=== PATIENT | female | born 1985 | race Caucasian/White ===

== ENCOUNTER 2016-10-29 23:29 | Inpatient (IN) | payer OTHER ==
[~2016-10-29] VITALS: Ht 170.2 cm; Wt 84.4 kg
[2016-10-30] MEDS ORDERED: Lactated Ringer's 1,000 ML IV PRN (00:46)
[2016-10-30] MEDS ORDERED: Carboprost 250 mCg/mL Inj IM PRN ×2 (00:50→10:00)
[2016-10-30] MEDS ORDERED: Methylergonovine 0.2 mg/mL Inj IM PRN ×2 (00:50→10:00)
[2016-10-30] MEDS ORDERED: Hemorrhage Kit, Post Partum XX ONE ×2 (00:50→10:00)
[2016-10-30] MEDS ORDERED: Oxytocin 10 Unit/mL Inj IM PRN ×2 (00:50→10:00)
[2016-10-30] MEDS ORDERED: Sodium Chloride LOK Flush 10 mL Syringe IVFLUSH PRN (00:50)
[2016-10-30] MEDS ORDERED: Ondansetron 2 mg/mL 2 mL Inj IVPUSH PRN ×2 (00:50→03:35)
[2016-10-30] MEDS ORDERED: fentaNYL-PF 50 mCg/mL 2 mL Inj IVPUSH PRN (00:50)
[2016-10-30] MEDS ORDERED: Oxytocin 30 Units/500 mL LR 30 UNITS in IV Premix 1 EACH IV PRN ×2 (00:50→10:00)
[2016-10-30 00:59] LABS: Mean Corpuscular Hemoglobin 27.8 pg (27.0-35.0); Mean Corpuscular Volume 86.1 fL (81-100)
--- NOTE | 2016-10-30 02:13 | PCM.HPOB ---
Subjective Date of Service: Oct 30, 2016 Referring Provider: Admitting Physician: Nydia Hodge MD Primary Care Physician: Nopcp Attending Physician: Nydia Hodge MD Chief Complaint Active labor History of Present History of Present Illness 31-year-old at 39 weeks 4 days gestation presents [facility] the [facility] with contractions since 9 PM. Cervical exam shows 4 cm dilated with bulging membranes. OB History: (2), Para (1), Term (1), Living (1) Obstetrical Complications: None Past Medical History Obstetrical History: Prior at 37 weeks with 17 hours of labor Medical History: 1. Hypothyroidism 2. Systemic mastocytosis 3. Varicosities/phlebitis Hx Tobacco Use: No Hx Alcohol Use: No Past Family History Family History Noncontributory Living Arrangement: with Family Review of Systems Constitutional: Y: Chills, Fever Cardiovascular: Denies: Edema Respiratory: Denies: Cough Gastrointestinal: Reports: Abdominal Pain Hematologic: Denies: Abnormal bleeding Medications Home medications 1. gummy 2. Levothyroxine 88 g Allergy Coded Allergies: No Known Allergies (Unverified , 10/30/16) Exam Constitutional: Well-developed, Well-nourished HEENT: Atraumatic Lungs: Clear to Auscultation Heart: Regular Rate/Rhythm, Normal S2 Abdomen: Gravid Extremities: Edema (trace) Neurological/Psychiatric: Alert, Oriented X3 Neuro: Grossly Neurologically Intact Labs/Diagnostics Maternal Blood Type: A (+) Hx Rho(D) Immune Globulin: No Group B Strep Results: Negative Previous Infant with GBS: No Rubella: Immune Lab History: Negative for: Hx HIV OB Intrapartum Assessment/Plan Assessment 31-year-old at 39 weeks 4 days gestation with uncomplicated course in active labor Problems: (1) Active labor at term Plan: Continue normal peripartum care Status: Acute ICD Code: [id number] (2) Hypothyroidism Qualifiers: Hypothyroidism type: acquired Qualified Code: E03.9 - Hypothyroidism, unspecified Plan: Continue levothyroxine Status: Acute ICD Code: E03.9 Pain Management: Epidural and IV pain medication available Pain Evaluation: Adequate Pain Control Post plan: Continue routine post care Attending Statement The patient was seen and examined together with Dr. Marguerite Patel DO on 10/30/2016 and I agree with the history, exam and plan as outlined in the note above. MARGUERITE PATEL DO Oct 30, 2016 02:13 Nydia Hodge MD Oct 30, 2016 06:14
[2016-10-30] MEDS ORDERED: Lactated Ringer's 500 ML IV ONE (03:32)
[2016-10-30] MEDS ORDERED: Atropine 1 mg/10 mL (Code) Syringe IVPUSH PRN (03:35)
[2016-10-30] MEDS ORDERED: EPHEDrine Sulfate 50 mg/mL Inj IVPUSH PRN (03:35)
[2016-10-30] MEDS ORDERED: fentaNYL 2 mCg/mL-Bupiv 0.125% 100 ML EPIDURAL SCH (03:35)
--- NOTE | 2016-10-30 04:29 | PCM.HPANE ---
Patient Data Surgeon Admitting Provider:Nydia Hodge MD Attending Provider:Nydia Hodge MD Primary Care Physician:Yusuf Other Provider:Robin Aguiar Anesthesia Reason for Visit Term Labor TERM Ht/WT & BMI Body Mass Index Allergies Coded Allergies: No Known Allergies (Unverified , 10/30/16) History History of ENT Problems?: No Hx of Heart Problems?: No Hx of Respiratory Problem?: No Hx Neurologic Problems?: No Hx of GI Problems?: No Hx of Problems?: No Hx Musculoskeletal Problems?: No Hx of Psycho/Social Problems?: No Hx Surgeries?: No Hx Any Other Health Problems?: No Other History/Comment Systemic macrocytosis - Mild. Manifests as "blotchy skin" and ocassional wheezing while running. Negative work-up for liver involvement. No other systemic manifestations. Has had an epidural in the past for labor without complication, which worked well. Hx Alcohol Use: No Smoking Status: Never Smoker Stop/Bang Risk Assessment Category Category 1A: Patient has history of documented sleep apnea, and HAS NOT received any narcotic, sedative or anesthesia administration during this stay. Category 1B: Patient has history of documented sleep apnea, and HAS received any narcotic , sedative or anesthesia administration during this stay Category 2: Patient has SUSPECTED Obstructive Sleep Apnea, and HAS received any narcotic , sedative or anesthesia administration during this stay. Category 3: Patient has SUSPECTED Obstructive Sleep Apnea and HAS NOT received narcotic, sedative or anesthesia administration during this stay. Category 4: Outpatient in Procedural Areas with known sleep apnea or who screen positive for High Risk via the STOP/BANG questionnaire. Exam Exam General Appearance: Alert, Oriented X3 HEENT/AIRWAY: MP 2, Neck Movement (FROM) Lungs: Clear to Auscultation, Clear to Percussion Heart: Exam Unremarkable, Regular Rate/Rhythm Meds/Labs/Diagnostics Labs Test 10/30/16 00:30 White Blood Count 9.4th/mm3 (3.8-10.1) Red Blood Count 4.31mil/mm3 (3.90-5.20) Hemoglobin 12.0g/dL (12.0-15.6) Hematocrit 37.1% (35.0-46.0) Mean Corpuscular Volume 86.1fL (81-100) Mean Corpuscular Hemoglobin 27.8pg (27.0-35.0) Mean Corpuscular Hemoglobin Concent 32.3% (32.0-37.0) Red Cell Distribution Width 14.2% (12.3-15.4) Platelet Count 319bil/L (150-400) Hold Purple Top Tube Received (Received) Plan Impression Patient chart reviewed, patient interviewed and anesthestic plan with risks, benefits, and alternatives discussed, and informed consent obtained. ASA Physical Status: ASA2 Mod Systemic Disease Anesthetic Plan: Epidural Bene/Risks/Altern/Consents: Yes HP Complete Prior to Induction: Yes Olivier Shahid MD Oct 30, 2016 03:32
--- NOTE | 2016-10-30 06:21 | PCM.PNOBIP ---
Subjective Date of Service Oct 30, 2016 Delivery plan: Spontaneous Vaginal Delivery Visit History 31-year-old at 39 weeks 4 days gestation with a history of hypothyroidism and uncomplicated course. She presented to the [facility] in labor with intact membranes. Subjective Patient has an epidural, but feels intense pressure. She appears uncomfortable with contractions. Maternal Date/Time of ROM: 10/30/2016 at 0600 Pain Management: Epidural Group B Strep Results: Negative Rubella: Immune Blood Type: A (+) RH Type: Negative Labs Laboratory Tests 10/30/16 00:30: White Blood Count 9.4, Red Blood Count 4.31, Hemoglobin 12.0, Hematocrit 37.1, Mean Corpuscular Volume 86.1, Mean Corpuscular Hemoglobin 27.8, Mean Corpuscular Hemoglobin Concent 32.3, Red Cell Distribution Width 14.2, Platelet Count 319, Hold Purple Top Tube Received Exam Vital Signs Vital Signs Contraction frequency in minutes: MVUs: Vital Signs: VS reviewed, stable Heart Tracings Heart Tones Baseline bpm Heart Rate Variability: Moderate Heart Rate Accelleration: Present Heart Rate Deceleration: Present Heart Rate Category: II Tocometry/IUPC Contraction frequency in minutes: MVUs: Sterile Vaginal Exam Cervical Dilation: 8 cms Cervical Effacement: 90 % Station: -1 Exam General: Alert, Oriented X3, Cooperative, Mild Distress OB Intrapartum Assessment/Plan Problems: (1) Active labor at term Plan: Continue to monitor labor. Anticipate Status: Acute ICD Code: [id number] (2) Hypothyroidism Qualifiers: Hypothyroidism type: acquired Qualified Code: E03.9 - Hypothyroidism, unspecified Status: Acute ICD Code: E03.9 Pain Evaluation: Adequate Pain Control Post plan: Continue routine post care Nydia Hodge MD Oct 30, 2016 06:21
[2016-10-30] MEDS ORDERED: Sodium Chloride LOK Flush 10 mL Syringe IVFLUSH SCH (08:30)
[2016-10-30] MEDS ORDERED: Lactated Ringer's 1,000 ML IV SCH (09:57)
[2016-10-30] MEDS ORDERED: Witch Hazel-Glycerin Pads TOPICAL PRN (10:00)
[2016-10-30] MEDS ORDERED: Benzocaine (Dermoplast) 20% 60 Gm Spray TOPICAL PRN (10:00)
[2016-10-30] MEDS ORDERED: HYDROcodone-APAP 5-325 mg Tablet PO PRN (10:00)
[2016-10-30] MEDS ORDERED: LANOlin HPA 7 Gm Ointment TOPICAL PRN (10:00)
--- NOTE | 2016-10-30 10:14 | PCM.OBVAG ---
Vaginal Delivery Date of Service Oct 30, 2016 Pre Operative Diagnosis Pre Operative Diagnosis 1. 39 weeks gestation 2. Hypothyroidism 3. Systemic Mastocytosis Post Operative Diagnosis Post Operative Diagnosis 1. 39 weeks gestation 2. Hypothyroidism 3. Systemic Mastocytosis Procedure Procedure: Vaginal Delivery Obstetical Procedure: Normal Spontaneous Vaginal Delivery Machine Tool Operator/Batch Heat Treat Operator Provider and Batch Heat Treat Operator: Nydia Hodge MD Indication for Procedure Indication for Procedure 31y/o -0-0-1 at 39 weeks gestation who presented to the [facility] in early labor. Induction: Active labor Findings Findings: Male infant in a cephalic presentation. There was a shoulder dystocia that occurred with left anterior shoulder. This was relieved by rotating the anterior shoulder forward in a clockwise fashion and maternal effort. Obstetrical Findings: [place] (Male), Cord (3 Vessel), Weight ( 4049grams), Presentation (JIL), 1 minute (6), 5 minutes (9), Placenta (Intact/Normal), Perineal Laceration (2nd degree) Analgesia/Medications Obstetrical Anesthesia: Epidural Procedure Details Procedure Details 31 y/o G2 now P2 at 39 weeks gestation who presented to the [facility] in active labor and progressed to complete dilation at 0702. She delivered a male per at 0930. There was a two minute shoulder dystocia that occurred at time of delivery and was relieved with clockwise rotation of the left anterior shoulder, suprapubic pressure and maternal effort. A medial lateral episiotomy was cut to allow for delivery of . The episiotomy was repaired in the standard fashion with 0-Vicryl. There was a skin tag on patient's left buttocks that she wanted removed. This area was prepped with Betadine and removed with Engle scissors. A single interrupted suture of 4-0 Vicryl was used for hemostasis along with silver nitrate. IV Intake/Output Catheters: None Blood Loss & Administration Estimated Blood Loss: 300 Blood Admin during procedure: No Post Procedure Plan Post delivery Condition: Mom stable Nydia Hodge MD Oct 30, 2016 10:14
[2016-10-30] MEDS: Lactated Ringer's 1,000 ML IV SCH ×2 (11:30→11:32)
--- NOTE | 2016-10-31 03:28 | PCM.ANEP2 ---
Post Anesthesia Evaluation ASA/CMS Post Anesthesia Date of Service: Oct 31, 2016 VS in Patient's Normal Range?: Yes Resp Stable; Airway Patent?: Yes CV Function & Hydration Stable: Yes Mental Status Recovered?: Yes Pain control Satisfactory?: Yes N/V Control Satisfactory?: Yes Sni Urias MD Oct 31, 2016 03:28
--- NOTE | 2016-10-31 03:28 | PCM.ANEP1 ---
Post Anesthesia Phase 1 PACU Phase 1 Assessment Date of Service: Oct 30, 2016 Anesthetic Administered: Epidural Level of Alertness: Awake, talking SMITH's with Equal Strength: Yes Pain: No Pain Scale Score: 0 Nausea or Vomiting: No Oxygen Delivery: Room Air Lungs: Normal Air Movement Summary Epidural never made her completely comfortable Sin Urias MD Oct 31, 2016 03:28
--- NOTE | 2016-10-31 07:14 | PCM.PNOBPP ---
Subjective Date of Service Oct 31, 2016 Post : Spontaneous Vaginal Delivery Subjective 31-year-old at 39 weeks 4 days gestation delivered via normal spontaneous vaginal delivery complicated by shoulder dystocia and second degree laceration, repaired. Mother is sore this morning, taking Ibuprofen every 6 hours. She rates her perineal pain 3/10. She is breast feeding and pumping. control plans are vasectomy for . Lochia: Normal Pain Management: PO pain meds, Epidural Gastrointestinal: Good Appetite, No N/V, Passing Flatus Postop Activity: Ambulating Independently Group B Strep Results: Negative Rubella: Immune Blood Type: A (+) RH Type: Negative Labs Laboratory Tests 10/30/16 00:30: White Blood Count 9.4, Red Blood Count 4.31, Hemoglobin 12.0, Hematocrit 37.1, Mean Corpuscular Volume 86.1, Mean Corpuscular Hemoglobin 27.8, Mean Corpuscular Hemoglobin Concent 32.3, Red Cell Distribution Width 14.2, Platelet Count 319, Hold Purple Top Tube Received Exam Vital Signs Vital Signs Vital Signs Date Time Temp Pulse Resp B/P Pulse Ox O2 Delivery O2 Flow Rate FiO2 10/31/16 03:28 Room Air Vital Signs: VS reviewed, stable Exam Abdomen: Fundus firm, Abdomen soft, Abdomen non-tender : Voiding without difficulty Extremities: Normal pulses, No edema Lungs: Clear to Auscultation, Normal Air Movement Heart: Regular Rate/Rhythm, No Murmurs/Rubs/Gallops General: Alert, Oriented X3 OB Post Assessment/Plan Assessment 31-year-old delivered male infant via at 39 weeks 4 days gestation. Normal course, pain control with ibuprofen. Problems: (1) (normal spontaneous vaginal delivery) Status: Resolved ICD Code: O80 (2) Hypothyroidism Qualifiers: Hypothyroidism type: acquired Qualified Code: E03.9 - Hypothyroidism, unspecified Plan: continue synthroid Status: Acute ICD Code: E03.9 Pain Evaluation: Adequate Pain Control Post plan: Continue routine post care, Discharge to border status Plan: Continue normal post care. MARCELLUS PATEL DO Oct 31, 2016 07:13
--- NOTE | 2016-10-31 07:28 | PCM.DIOB ---
Obstetrical Disch Instruction Dates of Hospitalization Date of Hospital Admission Oct 30, 2016 at 00:20 Providers Admitting Physician: Nydia Hodge MD Primary Care Physician: Nopmonica Attending Physician: Nydia Hodge MD Discharge Diagnosis Discharge Diagnosis Normal Spontaneous Vaginal Delivery Post Operative diagnosis Normal Spontaneous Vaginal Delivery Problems: (1) (normal spontaneous vaginal delivery) Plan: normal post care Status: Acute ICD Code: O80 (2) (normal spontaneous vaginal delivery) Status: Resolved ICD Code: O80 (3) Hypothyroidism Qualifiers: Hypothyroidism type: acquired Qualified Code: E03.9 - Hypothyroidism, unspecified Plan: continue synthroid Status: Acute ICD Code: E03.9 Diet Discharge Diet: No restrictions Activity Discharge Activity-General: Pelvic Rest for 6 weeks, Activity as energy allows , No lifting >15 pounds for 2 weeks Dressing and Incisional Care Hygiene: May shower Additional Instructions Discharge Instructions You may have some constipation so you have also been given a prescription for docusate to keep you regular. Be sure to follow up in 6 weeks at [facility]. Pelvic rest for 6 weeks (nothing per vagina including intercourse, tampons) If you have a fever greater than 100.4, please call [facility]. There is always someone powertrain control systems engineer to talk to. If you have an increase in bleeding, call [facility]. If you have a lot of bleeding suddenly, especially if you have symptoms of dizziness & weakness with it, get emergency help. When you see [facility] in two weeks, you will be informed of the results of all the labs. If you start experiencing extreme depression, especially if you feel that you are a danger to yourself or your family, seek emergency help. You have been through a lot -- BE SURE TO TAKE CARE OF YOURSELF. Follow Up Plan Follow-up Provider (F9): Nydia Hodge MD Follow-up appointment: Weeks (6) Call your provider for: Fever or Chills, Shortness of breath, Heavy vaginal bleeding, Excessive constipation, Vaginal discomfort, Red painful breasts MARCELLUS PATEL DO Oct 31, 2016 07:28
[2016-10-31] MEDS ORDERED: IBUP800T28 PO (07:52)
[2016-10-31] MEDS ORDERED: DOCU-41 PO (07:52)
--- NOTE | 2016-10-31 09:18 | PCM.DC.OB ---
Obstetrical Discharge Summary Date of Service Oct 31, 2016 Date of hospital admission Oct 30, 2016 at 00:20 Date of Discharge: Oct 31, 2016 Providers Admitting Physician: Nydia Hodge MD Primary Care Physician: Yusuf Attending Physician: Nydia Hodge MD Problems: (1) (normal spontaneous vaginal delivery) Status: Acute ICD Code: O80 (2) (normal spontaneous vaginal delivery) Status: Resolved ICD Code: O80 (3) Hypothyroidism Qualifiers: Hypothyroidism type: acquired Qualified Code: E03.9 - Hypothyroidism, unspecified Plan: continue Synthroid Status: Acute ICD Code: E03.9 Invasive procedures Date of Procedure: Oct 30, 2016 Brief History and Physical: 31-year-old at 39 weeks 4 days gestation presents to the [facility] with contractions since 9 PM. Cervical exam shows 4 cm dilated with bulging membranes. Medical history significant for mastocytosis and hypothyroidism. Physical exam on day of discharge Vital signs normal, stable. Well appearing, well nourished, with mild discomfort upon moving. Heart regular rate, rhythm, no murmurs. Lungs clear, good respiratory effort. Abdomen soft. Fundus firm just below the umbilicus. trace edema in bilateral lower extremities. appropriate mood and affect. Hospital Course: 31-year-old at 39 weeks 4 days gestation presents to the [facility] early in the morning of Oct 30, 2016 with contractions since 9 PM. She labored normally, received epidural anaesthesia. She delivered a male infant via . course was uncomplicated. Mother only taking ibuprofen for pain. Mother discharged to boarder status as continues to be monitored for tachypnea. Docusate Sodium (Colace) 100 Mg Capsule 100 MG PO DAILY PRN PRN For Constipation Prescribed by: MARCELLUS PATEL DO Ibuprofen (Ibuprofen) 800 Mg Tablet 800 MG PO Q6H PRN PRN For Pain Prescribed by: MARCELLUS PATEL DO Disposition Discharge to boarder status then home Follow-up plan 6 weeks in [facility] Discharge Diet: No restrictions Discharge Activity-General: Pelvic Rest for 6 weeks, Try not to overdue, No lifting >15 pounds for 2 weeks Patient instructions You may have some constipation so you have also been given a prescription for docusate to keep you regular. Be sure to follow up in 6 weeks at [facility]. Pelvic rest for 6 weeks (nothing per vagina including intercourse, tampons) If you have a fever greater than 100.4, please call [facility]. There is always someone pensions retirement plan specialist to talk to. If you have an increase in bleeding, call [facility]. If you have a lot of bleeding suddenly, especially if you have symptoms of dizziness & weakness with it, get emergency help. When you see [facility] in two weeks, you will be informed of the results of all the labs. If you start experiencing extreme depression, especially if you feel that you are a danger to yourself or your family, seek emergency help. You have been through a lot -- BE SURE TO TAKE CARE OF YOURSELF. MARCELLUS PATEL DO Oct 31, 2016 09:18
[2016-10-31 11:11] VITALS: BP 120/68; PULSE 67; RESP 17
== END 2016-10-31 14:27 | disposition home or self-care (01) | DRG 775 ==
LOC: FBCO 23:29 → FBC 10-30 00:20
PROVIDERS: ADMIT Obstetrics & Gynecology; ATTEND Obstetrics & Gynecology
PROC: 10E0XZZ Delivery of Products of Conception, External Approach (ICD-10-PCS; principal; 2016-10-30)
PROC: 0W8NXZZ Division of Female Perineum, External Approach (ICD-10-PCS; 2016-10-30)
PROC: 10H07YZ Insertion of Other Device into Products of Conception, Via Natural or Artificial Opening (ICD-10-PCS; 2016-10-30)
DX: O26.93 Pregnancy related conditions, unspecified, third trimester (principal); D47.0 Mast cell neoplasms of uncertain behavior; O99.284 Endocrine, nutritional and metabolic diseases complicating childbirth; E03.9 Hypothyroidism, unspecified; O66.0 Obstructed labor due to shoulder dystocia; Z3A.39 39 weeks gestation of pregnancy; Z37.0 Single live birth